=== PATIENT | female | born 1945 | race Caucasian/White ===

== ENCOUNTER 2023-06-24 20:03 | Inpatient (IN) | payer MEDICARE ==
[~2023-06-24] VITALS: Ht 170.2 cm; Wt 43.0 kg
[2023-06-24 19:35] VITALS: BP 84/56
[2023-06-24 20:00] VITALS: BP 104/71; TEMP 97.8; O2SAT 97
[2023-06-24] MEDS ORDERED: ZOLPIDEM TARTRATE 5 MG TABLET PO PRN (22:00)
[2023-06-24] MEDS ORDERED: ONDANSETRON HCL/PF 4 MG/2 ML VIAL IVP PRN (22:00)
[2023-06-24] MEDS ORDERED: MAG HYDROX/AL HYDROX/SIMETH 30 ML UDC PO PRN (22:00)
[2023-06-24] MEDS ORDERED: MAGNESIUM HYDROXIDE 30 ML UDC PO PRN (22:00)
[2023-06-24] MEDS ORDERED: Z GUARD REMEDY 4 OZ OINT TP PRN (22:00)
[2023-06-24] MEDS ORDERED: ACETAMINOPHEN 325 MG TABLET PO PRN (22:00)
[2023-06-24] MEDS: IV NS 0.9% 1,000 ML IV PRN (22:13)
[2023-06-24] MEDS ORDERED: IV NS 0.9% 500 ML IV ONE (23:00)
[2023-06-24 23:30] VITALS: BP 100/86
[2023-06-25] VITALS (7 sets, daily range): BP systolic 86–118; BP diastolic 56–80; TEMP 97.6–97.9; O2SAT 97–98
[2023-06-25] MEDS ORDERED: IV NS 0.9% 500 ML IV ONE (02:30)
[2023-06-25] MEDS ORDERED: CEFTRIAXONE 1GM BAG (ER ONLY) 50 ML IV ONE (03:41)
[2023-06-25] MEDS: CEFTRIAXONE 1 G in IV D5W 50 ML IV SCH (03:46)
[2023-06-25 05:49] LABS: BASOPHILS % (AUTO) 0.3 % (0.0-2.0); EOSINOPHILS % (AUTO) 0.5 % (0.0-6.0); HEMATOCRIT 46 % (33-45); HEMOGLOBIN 15.5 g/dL (11.5-14.8); LYMPHOCYTES # (AUTO) 0.7 K/uL (0.8-4.8); LYMPHOCYTES % (AUTO) 11.8 % (20.0-44.0); MEAN CORPUSCULAR HEMOGLOBIN 31 PG (26.0-33.0); MEAN CORPUSCULAR HGB CONC 34 g/dl (31.0-36.0); MEAN CORPUSCULAR VOLUME 93 fL (82-100); MONOCYTES # (AUTO) 0.4 K/uL (0.1-1.30); MONOCYTES % (AUTO) 7.5 % (2.0-12.0); NEUTROPHILS # (AUTO) 4.6 K/uL (1.8-8.9); NEUTROPHILS % (AUTO) 79.9 % (43.0-81.0); PLATELET COUNT (AUTO) 294 K/uL (150-450); RED BLOOD CELL COUNT(AUTO) 4.99 MIL/uL (4.0-5.2); RED CELL DISTRIBUTION WIDTH 13.8 % (11.5-15.0); WHITE BLOOD COUNT (AUTO) 5.7 K/uL (4.3-11.0)
[2023-06-25 05:57] LABS: CALCIUM, SERUM 8.9 mg/dL (8.5-10.1); CREATININE 0.9 mg/dL (0.6-1.3); POTASSIUM 3.7 mmol/L (3.5-5.1)
[2023-06-25 06:00] LABS: MAGNESIUM 2.5 mg/dL (1.8-2.4); PHOSPHORUS 3.5 mg/dL (2.5-4.9)
[2023-06-26] VITALS: BP 104/62; TEMP 97.8; O2SAT 98
[2023-06-26] MEDS: IV NS 0.9% 1,000 ML IV PRN (03:18)
[2023-06-26] MEDS: CEFTRIAXONE 1 G in IV D5W 50 ML IV SCH (03:44)
[2023-06-26] MEDS: ENSURE ENLIVE CHOC 237 ML CAN PO SCH ×2 (14:57→17:00)
[2023-06-27] MEDS: CEFTRIAXONE 1 G in IV D5W 50 ML IV SCH (04:22)
[2023-06-27 06:21] LABS: BASOPHILS % (AUTO) 0.6 % (0.0-2.0); EOSINOPHILS # (AUTO) 0.1 K/uL (0.0-0.7); EOSINOPHILS % (AUTO) 1.7 % (0.0-6.0); HEMATOCRIT 44 % (33-45); HEMOGLOBIN 14.2 g/dL (11.5-14.8); LYMPHOCYTES # (AUTO) 0.6 K/uL (0.8-4.8); LYMPHOCYTES % (AUTO) 11.3 % (20.0-44.0); MEAN CORPUSCULAR HEMOGLOBIN 31 PG (26.0-33.0); MEAN CORPUSCULAR HGB CONC 33 g/dl (31.0-36.0); MEAN CORPUSCULAR VOLUME 94 fL (82-100); MONOCYTES # (AUTO) 0.3 K/uL (0.1-1.30); MONOCYTES % (AUTO) 5.9 % (2.0-12.0); NEUTROPHILS # (AUTO) 4.6 K/uL (1.8-8.9); NEUTROPHILS % (AUTO) 80.5 % (43.0-81.0); PLATELET COUNT (AUTO) 282 K/uL (150-450); RED BLOOD CELL COUNT(AUTO) 4.63 MIL/uL (4.0-5.2); RED CELL DISTRIBUTION WIDTH 14.1 % (11.5-15.0); WHITE BLOOD COUNT (AUTO) 5.7 K/uL (4.3-11.0)
[2023-06-27] MEDS: IV NS 0.9% 1,000 ML IV PRN ×2 (06:30→21:25)
[2023-06-27 06:36] LABS: CALCIUM, SERUM 9.5 mg/dL (8.5-10.1); CREATININE 0.6 mg/dL (0.6-1.3); MAGNESIUM 2.3 mg/dL (1.8-2.4); POTASSIUM 3.9 mmol/L (3.5-5.1)
[2023-06-27 08:00] VITALS: BP 114/79; TEMP 98.6; O2SAT 96
[2023-06-27] MEDS: ENSURE ENLIVE CHOC 237 ML CAN PO SCH ×3 (08:37→17:51)
[2023-06-27 16:00] VITALS: BP_SYST 110; BP_DIAS 79; BP_DIAS 82; TEMP 98.2; O2SAT 96
[2023-06-27 20:12] VITALS: BP 110/73; TEMP 97.7; O2SAT 98
[2023-06-28] MEDS: CEFTRIAXONE 1 G in IV D5W 50 ML IV SCH (04:14)
[2023-06-28] MEDS: risperiDONE-M 0.5 MG TAB.RAPDIS PO SCH (08:40)
[2023-06-28] MEDS: ENSURE ENLIVE CHOC 237 ML CAN PO SCH ×3 (08:40→17:49)
[2023-06-29] MEDS: CEFTRIAXONE 1 G in IV D5W 50 ML IV SCH (04:33)
[2023-06-29 07:00] VITALS: BP 137/59; TEMP 98; O2SAT 98
[2023-06-29] MEDS: ENSURE ENLIVE CHOC 237 ML CAN PO SCH ×2 (08:13→12:19)
[2023-06-29] MEDS: risperiDONE-M 0.5 MG TAB.RAPDIS PO SCH (09:06)
[2023-06-29] MEDS ORDERED: ZOLP5TAB8 PO (09:17)
[2023-06-29] MEDS ORDERED: RISP0.5T74 PO (09:17)
== END 2023-06-29 14:30 | DRG 640 ==
LOC: TELE 20:03 → MED 06-26 09:38
PROVIDERS: ADMIT Nurse Practitioner Acute Care; ATTEND Internal Medicine
DX: E86.0 Dehydration (principal); G93.41 Metabolic encephalopathy; I48.91 Unspecified atrial fibrillation; Z20.822 Contact with and (suspected) exposure to COVID-19; B96.89 Other specified bacterial agents as the cause of diseases classified elsewhere; F03.90 Unspecified dementia, unspecified severity, without behavioral disturbance, psychotic disturbance, mood disturbance, and anxiety; R29.6 Repeated falls; I73.9 Peripheral vascular disease, unspecified; L60.1 Onycholysis; L60.3 Nail dystrophy; W18.30XA Fall on same level, unspecified, initial encounter; Y92.9 Unspecified place or not applicable; F29 Unspecified psychosis not due to a substance or known physiological condition; R23.4 Changes in skin texture; L85.3 Xerosis cutis
CPT/HCPCS: 36415; 80048-TC; 83735-TC; 84100-TC; 85025-TC; 87086-TC; 93307-TC; 97110-TC; 97116-TC; 97530-TC; A4223; G0378; J0696; J3490; J7030; J7060

== ENCOUNTER 2023-11-03 15:57 | Inpatient (IN) | payer MEDICARE, BC ==
[~2023-11-03] VITALS: Ht 162.6 cm; Wt 49.4 kg
[~2023-11-03 15:57] MED LIST: RISP0.5T74 PO; ZOLP5TAB8 PO
[2023-11-03 17:52] LABS: BASOPHILS # (AUTO) 0.1 K/uL (0.0-0.2); BASOPHILS % (AUTO) 0.8 % (0.0-2.0); EOSINOPHILS % (AUTO) 8.6 % (0.0-6.0); HEMATOCRIT 39 % (33-45); HEMOGLOBIN 12.6 g/dL (11.5-14.8); LYMPHOCYTES # (AUTO) 1.8 K/uL (0.8-4.8); LYMPHOCYTES % (AUTO) 15.4 % (20.0-44.0); MEAN CORPUSCULAR HEMOGLOBIN 28 PG (26.0-33.0); MEAN CORPUSCULAR HGB CONC 32 g/dl (31.0-36.0); MEAN CORPUSCULAR VOLUME 86 fL (82-100); MONOCYTES # (AUTO) 0.7 K/uL (0.1-1.30); MONOCYTES % (AUTO) 5.8 % (2.0-12.0); NEUTROPHILS # (AUTO) 8.3 K/uL (1.8-8.9); NEUTROPHILS % (AUTO) 69.4 % (43.0-81.0); PLATELET COUNT (AUTO) 477 K/uL (150-450); RED BLOOD CELL COUNT(AUTO) 4.53 MIL/uL (4.0-5.2); WHITE BLOOD COUNT (AUTO) 11.9 K/uL (4.3-11.0)
[2023-11-03 18:01] LABS: CALCIUM, SERUM 9.1 mg/dL (8.5-10.1); CARBON DIOXIDE 27 mmol/L (21-32); CHLORIDE 102 mmol/L (98-107); CREATININE 0.8 mg/dL (0.6-1.3); GLUCOSE 84 mg/dL (74-106); SODIUM SERUM 134 mmol/L (136-145); UREA NITROGEN, BLOOD 25 mg/dL (7-18)
[2023-11-03 18:07] LABS: ALANINE AMINOTRANSFERASE 204 U/L (12-78); ALBUMIN 2.8 g/dL (3.4-5.0); ALKALINE PHOSPHATASE 115 U/L (46-116); ASPARTATE AMINOTRANSFERASE 113 U/L (15-37); TOTAL PROTEIN, SERUM 7.8 g/dL (6.4-8.2)
[2023-11-03 18:13] LABS: LACTIC ACID 1.5 mmol/L (0.4-2.0)
[2023-11-03 18:15] LABS: INR 1.05 (0.91-1.10); PARTIAL THROMBOPLASTIN TIME 22.5 SEC (24.3-34.3); PROTHROMBIN TIME 10.8 SECS (9.2-11.1)
[2023-11-03 18:21] LABS: BILIRUBIN,DIRECT 0.1 mg/dL (0.0-0.2)
[2023-11-03 18:22] LABS: BILIRUBIN,TOTAL 0.1 mg/dL (0.2-1.0)
[2023-11-03 18:59] LABS: APPEARANCE,URINE Clear (CLEAR); BILIRUBIN,URINE Negative (NEGATIVE); BLOOD, URINE Small Ery/uL (NEGATIVE); COLOR,URINE YELLOW (YELLOW); KETONES,URINE Trace mg/dL (NEGATIVE); LEUKOCYTE ESTERASE ,URINE Trace (NEGATIVE); NITRITE, URINE Positive (NEGATIVE); PROTEIN,URINE Negative (NEGATIVE); UGLUCOSE Negative (NEGATIVE); UROBILINOGEN,URINE 0.2 EU/dL (0.2)
[2023-11-03 19:09] LABS: ADD URINE CULTURE YES; BACTERIA,URINE Many /HPF (None Seen); SQUAMOUS EPITHELIAL CELL,UR Few /HPF (None Seen); YEAST,URINE Few /HPF (None Seen)
[2023-11-03 20:45] VITALS: BP 124/74; TEMP 98.2; O2SAT 99
[2023-11-03 21:00] VITALS: BP 124/74; TEMP 98.2; O2SAT 99
[2023-11-03] MEDS ORDERED: Z GUARD REMEDY 4 OZ OINT TP PRN (21:30)
[2023-11-03] MEDS ORDERED: ONDANSETRON HCL/PF 4 MG/2 ML VIAL IVP PRN (21:30)
[2023-11-03] MEDS: VANCOMYCIN 1 GM /D5W 250 ML PB IV ONE (22:15)
[2023-11-03] MEDS: IV NS 0.9% 1,000 ML IV PRN (22:25)
[2023-11-03] MEDS: ENOXAPARIN SODIUM 40 MG/0.4 ML DISP.SYRIN SQ SCH (22:26)
[2023-11-03] MEDS: VANCOMYCIN 1 GM in IV D5W 250ml IV ONE (22:26)
[2023-11-04 07:00] VITALS: BP 117/67; TEMP 96.4; O2SAT 99
[2023-11-04 07:48] LABS: BASOPHILS # (AUTO) 0.1 K/uL (0.0-0.2); BASOPHILS % (AUTO) 0.6 % (0.0-2.0); EOSINOPHILS # (AUTO) 1.2 K/uL (0.0-0.7); EOSINOPHILS % (AUTO) 10.8 % (0.0-6.0); HEMATOCRIT 39 % (33-45); HEMOGLOBIN 12.7 g/dL (11.5-14.8); LYMPHOCYTES # (AUTO) 1.9 K/uL (0.8-4.8); LYMPHOCYTES % (AUTO) 17.7 % (20.0-44.0); MEAN CORPUSCULAR HEMOGLOBIN 29 PG (26.0-33.0); MEAN CORPUSCULAR HGB CONC 33 g/dl (31.0-36.0); MEAN CORPUSCULAR VOLUME 89 fL (82-100); MONOCYTES # (AUTO) 0.7 K/uL (0.1-1.30); NEUTROPHILS % (AUTO) 64.9 % (43.0-81.0); PLATELET COUNT (AUTO) 444 K/uL (150-450); RED BLOOD CELL COUNT(AUTO) 4.42 MIL/uL (4.0-5.2); RED CELL DISTRIBUTION WIDTH 15.4 % (11.5-15.0); WHITE BLOOD COUNT (AUTO) 10.8 K/uL (4.3-11.0)
[2023-11-04 08:12] LABS: CALCIUM, SERUM 8.8 mg/dL (8.5-10.1); CARBON DIOXIDE 24 mmol/L (21-32); CHLORIDE 103 mmol/L (98-107); CREATININE 0.7 mg/dL (0.6-1.3); GLUCOSE 82 mg/dL (74-106); MAGNESIUM 2.4 mg/dL (1.8-2.4); PHOSPHORUS 3.3 mg/dL (2.5-4.9); POTASSIUM 4.2 mmol/L (3.5-5.1); SODIUM SERUM 135 mmol/L (136-145); UREA NITROGEN, BLOOD 17 mg/dL (7-18)
[2023-11-04] MEDS ORDERED: GABA300C PO (09:07)
[2023-11-04] MEDS ORDERED: ACET-2605 PO (09:07)
[2023-11-04] MEDS ORDERED: TRIA80OI TP (09:07)
[2023-11-04] MEDS ORDERED: ATOR40TA PO (09:07)
[2023-11-04] MEDS ORDERED: ACET-868 PO (09:07)
[2023-11-04] MEDS ORDERED: RISP0.5T5 PO (09:07)
[2023-11-04] MEDS ORDERED: LEVO88TA5 PO (09:07)
[2023-11-04] MEDS ORDERED: DEXT15DR6 EACHEYE (09:07)
[2023-11-04] MEDS ORDERED: METO-357 PO (09:07)
[2023-11-04] MEDS ORDERED: GABA600T12 PO (09:07)
[2023-11-04 10:00] LABS: CHOLESTEROL 138 mg/dL (<200); HDL CHOLESTEROL 35 mg/dL (40-60); LDL 79 mg/dL (0-99); TRIGLYCERIDES 68 mg/dL (30-150)
[2023-11-04] MEDS ORDERED: IOHEXOL-300 100 ML VIAL IV ONE (10:02)
[2023-11-04] MEDS ORDERED: IV NS 0.9% 250 ML IV ONE (10:02)
[2023-11-04] MEDS: PANTOPRAZOLE 40 MG TABLET.DR PO SCH (10:08)
[2023-11-04] MEDS: risperiDONE-M 0.5 MG TAB.RAPDIS PO SCH (10:08)
[2023-11-04 16:00] VITALS: BP 121/79; TEMP 97.8; O2SAT 95
[2023-11-04] MEDS: risperiDONE 0.25 MG TABLET PO SCH (16:21)
[2023-11-04] MEDS ORDERED: POLYVINYL ALCOHOL 15 ML BOTTLE EACHEYE PRN (16:30)
[2023-11-04 20:00] VITALS: BP 156/91; TEMP 98; O2SAT 95
[2023-11-04] MEDS: CEFTRIAXONE 1 G in IV D5W 50 ML IV SCH (20:07)
[2023-11-04] MEDS: VANCOMYCIN 1 GM in IV D5W 250 ML IV SCH (20:50)
[2023-11-04] MEDS: IVERMECTIN 3 MG TABLET PO ONE (21:00)
[2023-11-04] MEDS ORDERED: diphenhydrAMINE HCL 50 MG/ML VIAL IV PRN (21:00)
[2023-11-04] MEDS: GABAPENTIN 300 MG CAPSULE PO SCH (21:05)
[2023-11-04] MEDS: ATORVASTATIN 40 MG TABLET PO SCH (21:06)
[2023-11-04] MEDS ORDERED: PERMETHRIN 5% CRM 60 GM TUBE TP ONE (23:32)
[2023-11-05] MEDS: PERMETHRIN 5% CRM 60 GM TUBE TP ONE (01:22)
[2023-11-05 07:00] VITALS: BP 130/70; TEMP 97.7; O2SAT 100
[2023-11-05 07:33] LABS: CREATININE 0.6 mg/dL (0.6-1.3)
[2023-11-05 07:47] LABS: BASOPHILS # (AUTO) 0.1 K/uL (0.0-0.2); BASOPHILS % (AUTO) 0.7 % (0.0-2.0); EOSINOPHILS # (AUTO) 1.1 K/uL (0.0-0.7); EOSINOPHILS % (AUTO) 9.8 % (0.0-6.0); HEMATOCRIT 36 % (33-45); HEMOGLOBIN 12.1 g/dL (11.5-14.8); LYMPHOCYTES # (AUTO) 1.9 K/uL (0.8-4.8); LYMPHOCYTES % (AUTO) 17.3 % (20.0-44.0); MEAN CORPUSCULAR HEMOGLOBIN 29 PG (26.0-33.0); MEAN CORPUSCULAR HGB CONC 34 g/dl (31.0-36.0); MEAN CORPUSCULAR VOLUME 86 fL (82-100); MONOCYTES # (AUTO) 0.6 K/uL (0.1-1.30); MONOCYTES % (AUTO) 5.7 % (2.0-12.0); NEUTROPHILS # (AUTO) 7.1 K/uL (1.8-8.9); NEUTROPHILS % (AUTO) 66.5 % (43.0-81.0); PLATELET COUNT (AUTO) 493 K/uL (150-450); RED BLOOD CELL COUNT(AUTO) 4.21 MIL/uL (4.0-5.2); RED CELL DISTRIBUTION WIDTH 14.8 % (11.5-15.0); WHITE BLOOD COUNT (AUTO) 10.7 K/uL (4.3-11.0)
[2023-11-05] MEDS: LEVOTHYROXINE SODIUM 88 MCG TABLET PO SCH (08:35)
[2023-11-05] MEDS: METOPROLOL SUCCINATE 50 MG TAB.SR.24H PO SCH (08:36)
[2023-11-05] MEDS: LORATADINE 10 MG TABLET PO SCH (08:37)
[2023-11-05] MEDS: GABAPENTIN 300 MG CAPSULE PO SCH (08:37)
[2023-11-05] MEDS: IVERMECTIN 3 MG TABLET PO ONE (09:31)
[2023-11-05 20:00] VITALS: BP 116/61; TEMP 98; O2SAT 98
[2023-11-06 07:30] VITALS: BP 110/87; TEMP 97.9; O2SAT 100
[2023-11-06 07:44] LABS: BASOPHILS % (AUTO) 0.5 % (0.0-2.0); EOSINOPHILS # (AUTO) 0.9 K/uL (0.0-0.7); EOSINOPHILS % (AUTO) 9.4 % (0.0-6.0); HEMATOCRIT 37 % (33-45); LYMPHOCYTES # (AUTO) 2.2 K/uL (0.8-4.8); LYMPHOCYTES % (AUTO) 23.5 % (20.0-44.0); MEAN CORPUSCULAR HEMOGLOBIN 29 PG (26.0-33.0); MEAN CORPUSCULAR HGB CONC 33 g/dl (31.0-36.0); MEAN CORPUSCULAR VOLUME 88 fL (82-100); MONOCYTES # (AUTO) 0.7 K/uL (0.1-1.30); MONOCYTES % (AUTO) 7.4 % (2.0-12.0); NEUTROPHILS # (AUTO) 5.5 K/uL (1.8-8.9); NEUTROPHILS % (AUTO) 59.2 % (43.0-81.0); PLATELET COUNT (AUTO) 446 K/uL (150-450); RED BLOOD CELL COUNT(AUTO) 4.16 MIL/uL (4.0-5.2); RED CELL DISTRIBUTION WIDTH 15.2 % (11.5-15.0); WHITE BLOOD COUNT (AUTO) 9.2 K/uL (4.3-11.0)
[2023-11-06 09:09] LABS: CALCIUM, SERUM 8.5 mg/dL (8.5-10.1); CARBON DIOXIDE 28 mmol/L (21-32); CHLORIDE 108 mmol/L (98-107); CREATININE 0.6 mg/dL (0.6-1.3); GLUCOSE 84 mg/dL (74-106); PHOSPHORUS 3.6 mg/dL (2.5-4.9); POTASSIUM 4.4 mmol/L (3.5-5.1); SODIUM SERUM 140 mmol/L (136-145); UREA NITROGEN, BLOOD 14 mg/dL (7-18)
[2023-11-06] MEDS ORDERED: IV NS 0.9% 250 ML IV ONE (18:50)
[2023-11-06] MEDS ORDERED: CT SWABBABLE VALVE TRANS SET 1 EA INFUS.SET MC ONE (18:50)
[2023-11-06] MEDS ORDERED: IOHEXOL-300 100 ML VIAL IV ONE (18:50)
[2023-11-06 20:00] VITALS: BP 106/68; TEMP 98.4; O2SAT 97
[2023-11-06 21:09] LABS: THYROID STIMULATING HORMONE 2.765 uIU/mL (0.358-3.74)
[2023-11-07 07:00] VITALS: BP 109/66; TEMP 97.4; O2SAT 94
[2023-11-07 07:33] LABS: BASOPHILS # (AUTO) 0.1 K/uL (0.0-0.2); BASOPHILS % (AUTO) 0.7 % (0.0-2.0); EOSINOPHILS # (AUTO) 0.8 K/uL (0.0-0.7); EOSINOPHILS % (AUTO) 8.8 % (0.0-6.0); HEMATOCRIT 36 % (33-45); LYMPHOCYTES # (AUTO) 1.5 K/uL (0.8-4.8); LYMPHOCYTES % (AUTO) 15.7 % (20.0-44.0); MEAN CORPUSCULAR HEMOGLOBIN 29 PG (26.0-33.0); MEAN CORPUSCULAR HGB CONC 33 g/dl (31.0-36.0); MEAN CORPUSCULAR VOLUME 87 fL (82-100); MONOCYTES # (AUTO) 0.6 K/uL (0.1-1.30); MONOCYTES % (AUTO) 6.4 % (2.0-12.0); NEUTROPHILS # (AUTO) 6.3 K/uL (1.8-8.9); NEUTROPHILS % (AUTO) 68.4 % (43.0-81.0); PLATELET COUNT (AUTO) 466 K/uL (150-450); RED CELL DISTRIBUTION WIDTH 14.8 % (11.5-15.0); WHITE BLOOD COUNT (AUTO) 9.3 K/uL (4.3-11.0)
[2023-11-07 08:00] LABS: CALCIUM, SERUM 8.4 mg/dL (8.5-10.1); CREATININE 0.6 mg/dL (0.6-1.3); MAGNESIUM 2.2 mg/dL (1.8-2.4); PHOSPHORUS 3.6 mg/dL (2.5-4.9); POTASSIUM 3.7 mmol/L (3.5-5.1)
[2023-11-07 08:07] LABS: CANCER AG, 15-3 17.9 U/mL (0.0-25.0)
[2023-11-07] MEDS ORDERED: LIDOCAINE 1% INJ 50 ML MDV IJ ONE (09:54)
[2023-11-07] MEDS ORDERED: BUPIVACAINE 0.5 % PF 150 MG/30 ML VIAL ONE (09:55)
[2023-11-07] MEDS ORDERED: LIDOCAINE 1%-EPI 1:100,000 20 ML VIAL ONE (09:55)
[2023-11-07] MEDS ORDERED: MIDAZOLAM HCL 2 MG/2ML VIAL ONE (10:50)
[2023-11-07] MEDS ORDERED: FENTANYL PF 100MCG/2ML AMPUL ONE (10:50)
[2023-11-07] MEDS ORDERED: VANCOMYCIN 500 MG in IV D5W 100ml IV SCH (11:00)
[2023-11-07 12:30] VITALS: BP 100/70; TEMP 97; O2SAT 95
[2023-11-07] MEDS: VANCOMYCIN 750 MG in IV D5W 250 ML IV SCH (13:26)
[2023-11-07] MEDS: IV LR 1000 ML 1,000 ML IV PRN (13:39)
[2023-11-07 16:00] VITALS: BP 109/63; TEMP 97.5; O2SAT 95
[2023-11-08] MEDS: ZOLPIDEM TARTRATE 5 MG TABLET PO PRN (00:24)
[2023-11-08 06:56] LABS: BASOPHILS # (AUTO) 0.1 K/uL (0.0-0.2); BASOPHILS % (AUTO) 0.6 % (0.0-2.0); EOSINOPHILS # (AUTO) 0.3 K/uL (0.0-0.7); EOSINOPHILS % (AUTO) 3.3 % (0.0-6.0); HEMATOCRIT 37 % (33-45); HEMOGLOBIN 12.6 g/dL (11.5-14.8); LYMPHOCYTES # (AUTO) 1.7 K/uL (0.8-4.8); LYMPHOCYTES % (AUTO) 17.8 % (20.0-44.0); MEAN CORPUSCULAR HEMOGLOBIN 29 PG (26.0-33.0); MEAN CORPUSCULAR HGB CONC 34 g/dl (31.0-36.0); MEAN CORPUSCULAR VOLUME 87 fL (82-100); MONOCYTES # (AUTO) 0.7 K/uL (0.1-1.30); MONOCYTES % (AUTO) 7.1 % (2.0-12.0); NEUTROPHILS # (AUTO) 6.9 K/uL (1.8-8.9); NEUTROPHILS % (AUTO) 71.2 % (43.0-81.0); PLATELET COUNT (AUTO) 481 K/uL (150-450); RED BLOOD CELL COUNT(AUTO) 4.29 MIL/uL (4.0-5.2); RED CELL DISTRIBUTION WIDTH 14.8 % (11.5-15.0); WHITE BLOOD COUNT (AUTO) 9.7 K/uL (4.3-11.0)
[2023-11-08 07:00] VITALS: BP 175/38; TEMP 97.8; O2SAT 99
[2023-11-08 07:34] LABS: CALCIUM, SERUM 8.3 mg/dL (8.5-10.1); CREATININE 0.7 mg/dL (0.6-1.3); MAGNESIUM 1.9 mg/dL (1.8-2.4); PHOSPHORUS 3.2 mg/dL (2.5-4.9)
[2023-11-08 16:00] VITALS: BP 111/91; TEMP 97.5; O2SAT 97
[2023-11-08 20:00] VITALS: BP 144/93; TEMP 98.6; O2SAT 96
[2023-11-09] MEDS: ACETAMINOPHEN 325 MG TABLET PO PRN (02:20)
[2023-11-09 06:34] LABS: BASOPHILS # (AUTO) 0.1 K/uL (0.0-0.2); BASOPHILS % (AUTO) 0.8 % (0.0-2.0); EOSINOPHILS # (AUTO) 0.8 K/uL (0.0-0.7); EOSINOPHILS % (AUTO) 8.2 % (0.0-6.0); HEMATOCRIT 34 % (33-45); HEMOGLOBIN 11.2 g/dL (11.5-14.8); LYMPHOCYTES # (AUTO) 1.7 K/uL (0.8-4.8); LYMPHOCYTES % (AUTO) 18.5 % (20.0-44.0); MEAN CORPUSCULAR HEMOGLOBIN 29 PG (26.0-33.0); MEAN CORPUSCULAR HGB CONC 33 g/dl (31.0-36.0); MEAN CORPUSCULAR VOLUME 86 fL (82-100); MONOCYTES # (AUTO) 0.7 K/uL (0.1-1.30); MONOCYTES % (AUTO) 7.8 % (2.0-12.0); NEUTROPHILS % (AUTO) 64.7 % (43.0-81.0); PLATELET COUNT (AUTO) 440 K/uL (150-450); RED BLOOD CELL COUNT(AUTO) 3.92 MIL/uL (4.0-5.2); RED CELL DISTRIBUTION WIDTH 14.4 % (11.5-15.0); WHITE BLOOD COUNT (AUTO) 9.3 K/uL (4.3-11.0)
[2023-11-09 06:49] LABS: CALCIUM, SERUM 7.8 mg/dL (8.5-10.1); CARBON DIOXIDE 27 mmol/L (21-32); CHLORIDE 104 mmol/L (98-107); CREATININE 0.5 mg/dL (0.6-1.3); GLUCOSE 85 mg/dL (74-106); PHOSPHORUS 3.4 mg/dL (2.5-4.9); POTASSIUM 4.2 mmol/L (3.5-5.1); SODIUM SERUM 137 mmol/L (136-145); UREA NITROGEN, BLOOD 8 mg/dL (7-18)
[2023-11-09 08:00] VITALS: BP 101/60; TEMP 98.2; O2SAT 99
[2023-11-09 13:05] LABS: IRON, SERUM 25 ug/dl (50-175); TOTAL IRON BINDING CAPACITY 228 ug/dl (250-450)
[2023-11-09 13:27] LABS: FERRITIN 223 ng/mL (8-388)
[2023-11-09 16:00] VITALS: BP 111/67; TEMP 97.9; O2SAT 99
[2023-11-09 20:00] VITALS: BP 128/89; TEMP 98.2; O2SAT 95
[2023-11-09 22:14] VITALS: BP 128/89; TEMP 98.2; O2SAT 95
[2023-11-10 06:34] LABS: BASOPHILS # (AUTO) 0.1 K/uL (0.0-0.2); EOSINOPHILS # (AUTO) 0.8 K/uL (0.0-0.7); HEMATOCRIT 38 % (33-45); HEMOGLOBIN 12.3 g/dL (11.5-14.8); LYMPHOCYTES # (AUTO) 1.7 K/uL (0.8-4.8); LYMPHOCYTES % (AUTO) 28.7 % (20.0-44.0); MEAN CORPUSCULAR HEMOGLOBIN 28 PG (26.0-33.0); MEAN CORPUSCULAR HGB CONC 33 g/dl (31.0-36.0); MEAN CORPUSCULAR VOLUME 87 fL (82-100); MONOCYTES # (AUTO) 0.6 K/uL (0.1-1.30); MONOCYTES % (AUTO) 10.4 % (2.0-12.0); NEUTROPHILS # (AUTO) 2.7 K/uL (1.8-8.9); NEUTROPHILS % (AUTO) 45.9 % (43.0-81.0); PLATELET COUNT (AUTO) 456 K/uL (150-450); RED BLOOD CELL COUNT(AUTO) 4.32 MIL/uL (4.0-5.2)
[2023-11-10 06:46] LABS: CALCIUM, SERUM 8.2 mg/dL (8.5-10.1); CARBON DIOXIDE 28 mmol/L (21-32); CHLORIDE 108 mmol/L (98-107); CREATININE 0.7 mg/dL (0.6-1.3); GLUCOSE 87 mg/dL (74-106); SODIUM SERUM 142 mmol/L (136-145); UREA NITROGEN, BLOOD 9 mg/dL (7-18)
[2023-11-10 16:00] VITALS: BP 122/79; TEMP 98.1; O2SAT 98
[2023-11-10 20:00] VITALS: BP 138/84; TEMP 98.1; O2SAT 99
[2023-11-11 08:00] VITALS: BP 115/69; TEMP 99.9; O2SAT 94
[2023-11-11 08:32] LABS: CALCIUM, SERUM 8.7 mg/dL (8.5-10.1); CARBON DIOXIDE 26 mmol/L (21-32); CHLORIDE 103 mmol/L (98-107); CREATININE 0.5 mg/dL (0.6-1.3); GLUCOSE 81 mg/dL (74-106); SODIUM SERUM 139 mmol/L (136-145); UREA NITROGEN, BLOOD 11 mg/dL (7-18)
[2023-11-11 16:00] VITALS: BP 121/84; TEMP 98.6; O2SAT 94
[2023-11-11] MEDS: FERROUS SULFATE (325 MG) 325 MG/TAB TABLET PO SCH (16:45)
[2023-11-11] MEDS: IVERMECTIN 3 MG TABLET PO ONE (22:00)
[2023-11-12 08:23] LABS: BASOPHILS # (AUTO) 0.1 K/uL (0.0-0.2); BASOPHILS % (AUTO) 1.9 % (0.0-2.0); EOSINOPHILS # (AUTO) 0.8 K/uL (0.0-0.7); EOSINOPHILS % (AUTO) 15.5 % (0.0-6.0); HEMATOCRIT 37 % (33-45); HEMOGLOBIN 12.2 g/dL (11.5-14.8); LYMPHOCYTES # (AUTO) 1.5 K/uL (0.8-4.8); LYMPHOCYTES % (AUTO) 28.5 % (20.0-44.0); MEAN CORPUSCULAR HEMOGLOBIN 29 PG (26.0-33.0); MEAN CORPUSCULAR HGB CONC 33 g/dl (31.0-36.0); MEAN CORPUSCULAR VOLUME 86 fL (82-100); MONOCYTES # (AUTO) 0.5 K/uL (0.1-1.30); MONOCYTES % (AUTO) 9.3 % (2.0-12.0); NEUTROPHILS # (AUTO) 2.4 K/uL (1.8-8.9); NEUTROPHILS % (AUTO) 44.8 % (43.0-81.0); PLATELET COUNT (AUTO) 471 K/uL (150-450); RED BLOOD CELL COUNT(AUTO) 4.27 MIL/uL (4.0-5.2); RED CELL DISTRIBUTION WIDTH 15.1 % (11.5-15.0); WHITE BLOOD COUNT (AUTO) 5.4 K/uL (4.3-11.0)
[2023-11-12 08:41] LABS: CALCIUM, SERUM 8.6 mg/dL (8.5-10.1); CREATININE 0.7 mg/dL (0.6-1.3); POTASSIUM 3.8 mmol/L (3.5-5.1)
[2023-11-12 08:55] VITALS: BP 118/76; TEMP 97.7; O2SAT 100
[2023-11-12] MEDS: PERMETHRIN 5% CRM 60 GM TUBE TP ONE (11:52)
[2023-11-12 16:36] VITALS: BP 138/98; TEMP 98.2; O2SAT 97
[2023-11-12 20:00] VITALS: BP 118/79; TEMP 98; O2SAT 97
[2023-11-13 04:00] VITALS: BP 116/78; O2SAT 100
[2023-11-13] MEDS ORDERED: HYDROGEN PEROXIDE 480 ML BOTTLE TP PRN (07:30)
[2023-11-13 08:00] VITALS: BP 112/74; TEMP 98.2; O2SAT 97
[2023-11-13 08:06] LABS: CALCIUM, SERUM 8.4 mg/dL (8.5-10.1); CREATININE 0.6 mg/dL (0.6-1.3)
[2023-11-13 08:10] LABS: BASOPHILS # (AUTO) 0.1 K/uL (0.0-0.2); BASOPHILS % (AUTO) 0.9 % (0.0-2.0); EOSINOPHILS # (AUTO) 0.7 K/uL (0.0-0.7); EOSINOPHILS % (AUTO) 11.3 % (0.0-6.0); HEMATOCRIT 37 % (33-45); HEMOGLOBIN 12.2 g/dL (11.5-14.8); LYMPHOCYTES # (AUTO) 1.5 K/uL (0.8-4.8); MEAN CORPUSCULAR HEMOGLOBIN 29 PG (26.0-33.0); MEAN CORPUSCULAR HGB CONC 33 g/dl (31.0-36.0); MEAN CORPUSCULAR VOLUME 87 fL (82-100); MONOCYTES # (AUTO) 0.6 K/uL (0.1-1.30); NEUTROPHILS % (AUTO) 51.8 % (43.0-81.0); PLATELET COUNT (AUTO) 461 K/uL (150-450); RED BLOOD CELL COUNT(AUTO) 4.25 MIL/uL (4.0-5.2); RED CELL DISTRIBUTION WIDTH 14.8 % (11.5-15.0); WHITE BLOOD COUNT (AUTO) 5.8 K/uL (4.3-11.0)
[2023-11-13 09:50] VITALS: BP 112/74
[2023-11-13] MEDS ORDERED: VANC750F2 IV (12:13)
[2023-11-13] MEDS ORDERED: CEFT1FRO2 IV (12:13)
== END 2023-11-13 16:30 | DRG 584 ==
LOC: ER 16:13 → MED 20:20
PROVIDERS: ADMIT Nurse Practitioner Acute Care; ATTEND Nurse Practitioner Acute Care
PROC: 0HBT0ZZ Excision of Right Breast, Open Approach (ICD-10-PCS; principal; 2023-11-07)
DX: N61.1 Abscess of the breast and nipple (principal); D68.69 Other thrombophilia; E87.1 Hypo-osmolality and hyponatremia; N39.0 Urinary tract infection, site not specified; F03.92 Unspecified dementia, unspecified severity, with psychotic disturbance; E03.9 Hypothyroidism, unspecified; E78.5 Hyperlipidemia, unspecified; I48.0 Paroxysmal atrial fibrillation; B86 Scabies; B96.20 Unspecified Escherichia coli [E. coli] as the cause of diseases classified elsewhere; D75.839 Thrombocytosis, unspecified; G62.9 Polyneuropathy, unspecified; I10 Essential (primary) hypertension; D72.829 Elevated white blood cell count, unspecified; R74.01 Elevation of levels of liver transaminase levels; R21 Rash and other nonspecific skin eruption; I25.10 Atherosclerotic heart disease of native coronary artery without angina pectoris
CPT/HCPCS: 36415; 71045-TC; 71260-TC; 74178; 76642-RT-TC; 80048-TC; 80061-TC; 80076-TC; 80202-TC; 81001; 82378; 82607-TC; 82728-TC; 83540-TC; 83605-TC; 83735-TC; 83880; 84100-TC; 84439-TC; 84443-TC; 84484-TC; 85025-TC; 85730-TC; 86300; 87040-TC; 87081-TC; 87086-TC; 93307-TC; 97110-TC; 97116-TC; 97530-TC; A4223; A6253; A6403; A6407; G0378; J0690; J0696; J1650; J2250; J2704; J3010; J3370; J3371; J3490; J7030; J7050; J7060; J7120; Q9967